=== PATIENT | male | born 1970 | race Caucasian/White ===

== ENCOUNTER 2024-04-10 12:32 | Inpatient (IN) | payer OTHER ==
[2024-04-10 13:15] LABS: HEMOGLOBIN 13.9 g/dL (14.0-18.0); MEAN CORPUSCULAR HEMOGLOBIN 29.1 pg (27.0-34.0); MEAN CORPUSCULAR HGB CONC 31.6 g/dL (33.0-35.0); MEAN CORPUSCULAR VOLUME 92.1 fL (80-100); PLATELET COUNT,PLT 353 10^3/uL (150-450); RED BLOOD CELL COUNT 4.78 10^6/uL (4.6-6.2); WHITE BLOOD CELL COUNT,WBC 11.3 10^3/uL (5.0-10.0)
[2024-04-10] MEDS: Sodium Chloride 0.9% 10 ML Syringe FLUSH PRN (13:16)
[2024-04-10] MEDS: ceFAZolin 2 GM Vial IVPUSH ONE (13:16)
[2024-04-10 13:29] LABS: BASOPHILS PERCENT AUTO 0.2 % (0.0-1.0); LYMPHOCYTES PERCENT AUTO 16.7 % (20.5-50.1); MONOCYTES PERCENT AUTO 5.6 % (2-8); NEUTROPHILS PERCENT AUTO 75.5 % (42.2-75.2)
[2024-04-10 13:39] LABS: A/G RATIO 0.5; ALBUMIN 2.5 g/dL (3.4-5.0); ANION GAP 7.6 mEq/L (7-13); BILIRUBIN TOTAL 0.2 mg/dL (0.2-1.0); BUN/CREATININE RATIO 9.5 (No establ ref range); C-REACTIVE PROTEIN 2.5 ng/dL (<=0.50); CALCIUM 8.9 mg/dL (8.5-10.1); CREATININE 1.05 mg/dL (0.70-1.30); EST CRCL DRUG DOSING (CG) 73.42 mL/min; MAGNESIUM 2.1 mg/dL (1.8-2.4); POTASSIUM,K 3.6 mmol/L (3.5-5.1); PROTEIN TOTAL,TP 7.5 g/dL (6.4-8.2)
[2024-04-10] MEDS: Vancomycin 2 GM in Sodium Chloride 0.9% 500 ML IV ONE (14:14)
[2024-04-10] MEDS: Vancomycin 1 GM SDV ONE (14:15)
[2024-04-10 14:17] LABS: EOSINOPHILS PERCENT MAN 1 % (1-3); LYMPHOCYTES % ATYPICAL MANUAL 2 %; LYMPHOCYTES PERCENT MAN 20 % (20-50); MONOCYTES PERCENT MAN 4 % (2-8); SEG NEUTROPHILS PERCENT MAN 73 % (42-75)
[2024-04-10] MEDS ORDERED: Ondansetron 4 MG/2 ML SDV IVPUSH PRN (14:51)
[2024-04-10] MEDS ORDERED: Ketorolac 30 MG/ML SDV IM PRN (14:51)
[2024-04-10] MEDS: Sodium Chloride 0.9% 1,000 ML IV SCH (15:00)
[2024-04-10] MEDS ORDERED: Ketorolac 30 MG/ML SDV IVPUSH PRN (15:15)
[2024-04-10] MEDS: Enoxaparin 40 MG/0.4 ML Syringe SUBCUT SCH (15:56)
[2024-04-10] MEDS: Piperacillin/Tazobactam 3.375 GM in Sodium Chloride 0.9% 100 ML IV SCH (16:14)
[2024-04-10] MEDS: Piperacillin/Tazobactam 4.5 GM in Sodium Chloride 0.9% 100 ML IV ONE (16:50)
[2024-04-10] MEDS ORDERED: Non-Formulary Medication 1 Each (Diclofenac Sodium [Diclofenac Sodium] 75 MG Tablet.Dr) PO SCH (21:00)
[2024-04-10] MEDS: traMADol 50 MG Tab PO SCH (21:18)
[2024-04-10] MEDS: Piperacillin/Tazobactam 4.5 GM in Sodium Chloride 0.9% 100 ML IV SCH (21:18)
[2024-04-11] MEDS: oxyCODONE 5 MG Tab PO PRN (04:53)
[2024-04-11 05:47] LABS: EOSINOPHILS PERCENT AUTO 2.1 % (1.0-3.0); HEMATOCRIT 41.8 % (40.0-54.0); LYMPHOCYTES PERCENT AUTO 22.8 % (20.5-50.1); MEAN CORPUSCULAR HEMOGLOBIN 28.7 pg (27.0-34.0); MEAN CORPUSCULAR HGB CONC 31.1 g/dL (33.0-35.0); MEAN CORPUSCULAR VOLUME 92.3 fL (80-100); MONOCYTES PERCENT AUTO 7.6 % (2-8); NEUTROPHILS PERCENT AUTO 67.2 % (42.2-75.2); PLATELET COUNT,PLT 335 10^3/uL (150-450); RED BLOOD CELL COUNT 4.53 10^6/uL (4.6-6.2); WHITE BLOOD CELL COUNT,WBC 10.8 10^3/uL (5.0-10.0)
[2024-04-11 05:49] LABS: BASOPHILS PERCENT AUTO 0.3 % (0.0-1.0)
[2024-04-11 06:08] LABS: ALBUMIN 2.3 g/dL (3.4-5.0); ANION GAP 9.2 mEq/L (7-13); BILIRUBIN TOTAL 0.2 mg/dL (0.2-1.0); CALCIUM 8.3 mg/dL (8.5-10.1); EST CRCL DRUG DOSING (CG) 77.09 mL/min; POTASSIUM,K 4.2 mmol/L (3.5-5.1); PROTEIN TOTAL,TP 7.1 g/dL (6.4-8.2)
[2024-04-11 06:11] LABS: A/G RATIO 0.48
[2024-04-11] MEDS ORDERED: diphenhydrAMINE/Zinc Acetate 2% Crm 28.4 GM Tube TOP PRN (13:46)
[2024-04-11] MEDS: Furosemide 20 MG Tab PO ONE (17:05)
[2024-04-11] MEDS: ceFAZolin 2 GM Vial IVPUSH SCH (22:00)
[2024-04-12] MEDS: Sodium Chloride 0.9% 250 ML ONE (01:42)
[2024-04-12] MEDS: diphenhydrAMINE 25 MG Tab PO PRN (20:55)
[2024-04-12] MEDS: Docusate Sodium 100 MG Cap PO PRN (20:56)
[2024-04-13 06:41] LABS: CREATININE 1.07 mg/dL (0.70-1.30); EST CRCL DRUG DOSING (CG) 72.05 mL/min; VANCOMYCIN RANDOM 21.3 ug/mL (No Normal Range)
[2024-04-14 08:09] VITALS: BP 154/81; PULSE 78
[2024-04-14] MEDS: Diphtheria,Pertussis(Acell),Tetanus Vaccine 0.5 ML Syringe IM ONE (10:26)
== END 2024-04-14 10:45 | disposition home or self-care (01) | DRG 603 ==
LOC: DL.ED 12:32 → DL.MS 14:50 → OBSVTOIN 04-12 08:56
PROVIDERS: ADMIT Internal Medicine; ATTEND Internal Medicine
DX: L03.115 Cellulitis of right lower limb (principal); Z68.43 Body mass index [BMI] 50.0-59.9, adult; E66.9 Obesity, unspecified; H54.7 Unspecified visual loss; B95.5 Unspecified streptococcus as the cause of diseases classified elsewhere; Z79.899 Other long term (current) drug therapy
CPT/HCPCS: 36415; 80053; 80202; 82565; 83735; 85025; 86140; 87040; 90471; 90715; 93971; 96365; 96366; 96367; 96372; 96375; 96376; 99222; 99232; 99239; 99284; 99284-25; A9270-GY; G0378; J0690; J1650; J2543; J3370; J3490; J7030; J7040; J7050